=== PATIENT | female | born 1935 | race Caucasian/White ===

== ENCOUNTER 2016-11-12 11:45 | Day surgery (SDC) | payer MEDICARE ==
[~2016-11-12] VITALS: Ht 177.8 cm; Wt 85.1 kg
[2016-11-12] VITALS (7 sets, daily range): BP systolic 122–162; BP diastolic 66–94; PULSE 70–88; RESP 6–17; O2SAT 93–99
[~2016-11-12 11:45] MED LIST: ALEN70TA2 PO; CHOL200025 PO; HYDR25TA4 PO; INSLIS SUBQ; INSU100V7 SUBQ; LEVO125T50 PO; LORazepam 1 mg Tablet PO PRN; Lactated Ringer's 1,000 ML IV SCH; METO25TA6 PO; POTA10TA12 PO; SIMV20TA4 PO; TRAM50TA2 PO; VALS320T12 PO; WARF5TAB9 PO
[2016-11-12] MEDS ORDERED: fentaNYL-PF 50 mCg/mL 2 mL Inj ONE (11:46)
[2016-11-12] MEDS ORDERED: Propofol 10,000 mCg/mL 20 mL Inj ONE (11:46)
[2016-11-12] MEDS ORDERED: Rocuronium 10 mg/mL 5 mL Inj ONE (11:46)
[2016-11-12] MEDS ORDERED: Ondansetron 2 mg/mL 2 mL Inj ONE (11:46)
[2016-11-12] MEDS ORDERED: Dexamethasone 4 mg/mL Inj ONE (11:46)
[2016-11-12] MEDS ORDERED: Lactated Ringer's 1,000 ML IV ONE (12:59)
--- NOTE | 2016-11-12 15:18 | PCM.HPANE ---
Patient Data Date of Service: November 12, 2016 ([id number]) Surgeon Admitting Provider: Attending Provider:Bill Dyson MD Primary Care Physician:Yasmin Brunson DO Other Provider:Pennie Mead Anesthesia Reason for Visit Primary Hyperparathyroidism Ht/WT & BMI Height (Feet): 5 Height (Inches): 10.00 Weight (Kilograms): 85.100 Body Mass Index 26.00 Allergies Coded Allergies: Sulfa (Sulfonamide Antibiotics) (Verified Allergy, Unknown, 11/05/16) aspirin (Verified Allergy, Unknown, 11/05/16) tamoxifen (Verified Allergy, Unknown, 11/05/16) Uncoded Allergies: ADHESIVE TAPES (Allergy, Unknown, 11/05/16) NSAIDS (Allergy, Unknown, 11/05/16) Past Anesthesia History Anesthesia History: Denies:: Anesthesia Reactions, Malignant Hyperthermia Diabetes History Hx Diabetes?: Yes Type of Diabetes: Type I Glycemic Control: Insulin & Oral Medication Current Bedside Blood Glucose: 166 Medications Blood Thinner: Aspirin, Coumadin Hypertension Medication: Yes Home Meds Incl Beta Donna: Yes Date Beta Donna Taken: November 12, 2016 Time Beta Donna Taken: 0400 Reported Medications Cholecalciferol (Vitamin D3) (Vitamin D3)2,000 Unit Tablet2,000 Unit PO DAILY 11/05/16 Valsartan 320 Mg [id number] Mg PO DAILY 11/05/16 Tramadol 50 Mg Eijxme89 Mg PO Q4H PRN For Pain Ref 0 11/05/16 Simvastatin 20 Mg Flfywk43 Mg PO HS Ref 0 11/05/16 Potassium Chloride ER 10 Meq Ogtkos51 Meq PO DAILY Ref 0 TAKE WITH FOOD 11/05/16 Metoprolol Tartrate 25 Mg Hmewkc11 Mg PO BID 30 Days Ref 0 11/05/16 Levothyroxine (Levoxyl)125 Mcg Wowaoi930 Mcg PO DAILY Ref 0 11/05/16 Insulin Glargine (Lantus U100 Insulin Vial)100 Unit/Ml Vial16 Unit SUBQ QPM #1 VIAL Ref 0 11/05/16 Insulin Glargine (Lantus U100 Insulin Vial)100 Unit/Ml Vial18 Unit SUBQ QAM #1 VIAL Ref 0 11/05/16 Warfarin Sodium (Jantoven)5 Mg Tablet5 Mg PO DAILY 11/05/16 Hydrochlorothiazide 25 Mg Ohvsqg47 Mg PO DAILY 30 Days Ref 0 5/16/17 Insulin Human Lispro (HumaLOG U100 Insulin Vial)100 Unit/Ml Unit4-8 Unit SUBQ DIRECTED #1 VIAL Ref 0 Check blood sugars before meals and at bedtime. Use correction factor only before meals. Blood Sugar Lispro Correction: <151, 0 units; 151-175, 1 unit; 176-200, 2 units; 201-225, 3 units; 226-250, 4 units; 251-275, 5 units; 276-300, 6 units; 301-325, 7 units; 326-350, 8 units; 351-375, 9 units; 376-400, 10 units; >400, 12 units. 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 (greer breast cancer- lumpectomies/radiation) Denies:: Currently Skin History: Denies:: History Skin Disorders? Pressure Ulcers Hx Musculoskeletal Problems?: Yes Musculoskeletal History: Positive for:: Back Injury (prior hx L3-5 lumbar lami ) Musculoskeletal Trauma (prior hx knee arthroscopy) Osteoarthritis Denies:: Fibromyalgia Joint Replacement Myasthenia Gravis Hx of Psycho/Social Problems?: No Hx Surgeries?: Yes (greer breast lumpectomy, tonsil, knee scope, cataracts- l3-5 lami) Hx Any Other Health Problems?: Yes Other History: Positive for:: Cancer (bilateral breast) Endocrine Disease (hyperparathyroid current admission problem) Thyroid Disease (parathyroid- with hx of prior radioactive iodine ablation) Hx Diabetes: YesBedside Blood Glucose: 166 Have You Smoked inLast 12 mo: No Stop/Bang S-Snoring: Do You Snore Loudly: No T-Tired: feel tired, fatigued: No O-Obsered: Observed not breath: No P-Blood Pressure: treated: Yes B- Body Mass Index > 35 kg/m2: No A- Age over 50: Yes N- Neck Large Circumference: No G- Gender Male: No JT Total Score: 2 JT Risk Assessment: Low Risk, <3 Yes Risk Assessment Category Category 1A: Patient has history of documented sleep apnea, and HAS NOT received any narcotic, sedative or anesthesia administration during this stay. Category 1B: Patient has history of documented sleep apnea, and HAS received any narcotic , sedative or anesthesia administration during this stay Category 2: Patient has SUSPECTED Obstructive Sleep Apnea, and HAS received any narcotic , sedative or anesthesia administration during this stay. Category 3: Patient has SUSPECTED Obstructive Sleep Apnea and HAS NOT received narcotic, sedative or anesthesia administration during this stay. Category 4: Outpatient in Procedural Areas with known sleep apnea or who screen positive for High Risk via the STOP/BANG questionnaire. Exam Exam Vital Signs Vital Signs Date Time Temp Pulse Resp B/P Pulse Ox O2 Delivery O2 Flow Rate FiO2 11/12/16 12:00 36.4 70 17 149/92 96 Room Air General Appearance: Alert, Oriented X3, Cooperative HEENT/AIRWAY: MP 1 Lungs: Clear to Auscultation Heart: Exam Unremarkable Meds/Labs/Diagnostics Admission Meds Current Medications Lactated Ringer's (Lr) 1,000 ml @ ud STK-MED ONCE IV Last administered on 11/12t 12:59; Start 11/12/16 at 12:59; Stop 11/12/16 at 13:00; Status DC Bedside Blood Glucose: 166 Plan Impression Patient chart reviewed, patient interviewed and anesthestic plan with risks, benefits, and alternatives discussed, and informed consent obtained. NPO per Anesth. Guidelines: Yes ASA Physical Status: ASA2 Mod Systemic Disease Anesthetic Plan: GA Bene/Risks/Altern/Consents: Yes HP Complete Prior to Induction: Yes Luis Miguel Roberts MD November 12, 2016 15:18
[2016-11-12] MEDS ORDERED: Lactated Ringer's 1,000 ML IV SCH (15:19)
[2016-11-12] MEDS ORDERED: Lactated Ringer's 500 ML IV PRN (15:19)
[2016-11-12] MEDS ORDERED: MetoCLOpramide 5 mg/mL 2 mL Inj IVPUSH PRN ×2 (15:20→16:30)
[2016-11-12] MEDS ORDERED: Ondansetron 2 mg/mL 2 mL Inj IVPUSH PRN ×2 (15:20→16:30)
[2016-11-12] MEDS ORDERED: Dexamethasone 4 mg/mL Inj IVPUSH PRN (15:20)
[2016-11-12] MEDS ORDERED: fentaNYL-PF 50 mCg/mL 2 mL Inj IVPUSH PRN (15:20)
[2016-11-12] MEDS ORDERED: HYDROmorphone 1 mg/mL Inj IVPUSH PRN (15:20)
[2016-11-12] MEDS ORDERED: Phenylephrine 10,000 mCg/mL Inj IVPUSH PRN (15:20)
[2016-11-12] MEDS ORDERED: EPHEDrine Sulfate 50 mg/mL Inj IVPUSH PRN (15:20)
[2016-11-12] MEDS ORDERED: Bupivacaine-MPF 0.25%/EPI 30 mL Inj INFILTRATE ONE (16:02)
--- NOTE | 2016-11-12 16:29 | PCM.DISURG ---
Surgical Discharge Instruction Date of Service November 12, 2016 Dates of Hospitalization Date of Hospital Admission Providers Admitting Physician: Primary Care Physician: Yasmin Brunson DO Attending Physician: Bill Dyson MD Discharge Diagnosis Discharge Diagnosis Hyperparathyroidism Diet Discharge Diet: No restrictions Activity Discharge Activity-General: No restrictions Dressing and Incisional Care Dressing Instructions: Dermabond will peel off gradually Hygiene: May shower Additional Instructions Discharge Instructions It is okay to resume warfarin today. Follow Up Plan Follow Up Plan In the general surgery [place] postoperative clinic in 2-3 weeks for a wound check. Call your provider for: Fever (over 101.5), Discharge @ incision, pus discharge Bill Dyson MD November 12, 2016 16:28
[2016-11-12] MEDS ORDERED: HYDROcodone-APAP 5-325 mg Tablet PO PRN (16:30)
--- NOTE | 2016-11-12 16:34 | PCM.ANEP1 ---
Post Anesthesia PACU Phase 1 Assessment Date of Service: November 12, 2016 ([id number]) Vital Signs 88, 22, 97%, 161/94, 36.7 Vital Signs Date Time Temp Pulse Resp B/P Pulse Ox O2 Delivery O2 Flow Rate FiO2 11/12/16 12:00 36.4 70 17 149/92 96 Room Air Level of Alertness: Awake, talking LORENZO's with Equal Strength: Yes Pain: No Nausea or Vomiting: No CV Function & Hydration Stable: Yes Airway Device: none Oxygen Delivery: Simple Mask Lungs: Clear to Auscultation Dermatome Level: Full Sensation Summary uneventful GETA PACU Phase 2 Assessment Complications: No Follow up Care: No Patient Instructions Provided: N/A Luis Miguel Roberts MD November 12, 2016 16:34
--- NOTE | 2016-11-12 16:35 | PCM.SURGOP ---
Surgical Operative Report Date of Service: November 12, 2016 Pre Operative Diagnosis Primary hyperparathyroidism Post Operative Diagnosis Same, right inferior parathyroid adenoma Procedure: Minimally invasive right inferior parathyroidectomy Surgeon and Veneer Puller: Surgeon: Bill Dyson MD Assistants: Almita Baeza M.D. Indication for Procedure 81-year-old woman who has had primary hyperparathyroidism, with a PTH of 169, and a calcium of 10.2. She also has had previous radioactive iodine ablation for Graves' disease, so has no detectable thyroid tissue on ultrasound of the neck. Her nuclear medicine scan and ultrasound of the neck both were suggestive of a parathyroid adenoma in the right inferior position. After discussion of risks and benefits, she agreed to proceed with minimally invasive parathyroidectomy. Findings: There was no adenoma in the right inferior position, measuring 1.2 x 0.7 x 0.3 cm. There was no visible thyroid tissue. Procedure Details After smooth induction of general endotracheal anesthesia, she was placed in the modified beachchair position with the neck extended, and was prepped and draped in wide sterile fashion. A procedural pause was performed according to the SCOAP checklist, and all were found to be in agreement. A 2 cm transverse incision was made in the midline on the inferior neck. Dissection was carried down with electrocautery until the platysma muscle was divided. Subplatysmal skin flaps were raised superiorly and inferiorly. The median raphae was incised, and the right sternohyoid and sternothyroid muscles were sequentially elevated. There was no visible thyroid tissue. In the right inferior neck, there was an obvious parathyroid adenoma. This was dissected free from its blood supply, which came off the inferior aspect using the LigaSure device. Ex vivo, it measured 1.2 x 0.7 x 0.3 cm. It was sent for permanent pathology. Hemostasis was adequate. The midline strap muscles were reapproximated with interrupted 3-0 Vicryl suture. The platysma muscle was closed with interrupted 3-0 Vicryl suture. The skin incision was closed with a running 4-0 Monocryl subcuticular stitch. Dermabond was applied to the skin as a dressing. At the end of the case all needle and sponge counts were correct 2. The patient was awakened from anesthesia without difficulty, and taken to the recovery room in satisfactory condition, having tolerated the procedure well. Complications There were no periprocedural complications identified. Surgical Specimen Removed: Yes Specimen sent to Pathology: Yes Surgical Specimen description: Right inferior parathyroid gland Anesthetic Plan: GA Grafts, Implants: None Output, Estimated Blood Loss: 5 Blood Administration during heredia: No Drains: None Catheters: None copies to: Kendall Caruso MD; Yasmin Brunson Joshua D MD November 12, 2016 16:35
--- NOTE | 2016-11-14 10:59 | PATH ---
SURGICAL PATHOLOGY Attending Physician:[place] Moya CASE STATUS: Signed Out PATIENT NAME: DULCE BERRY PID: [id number] : 1935 DATE COLLECTED:11/12/2016 00:00 SPECIMEN: Parathyroid Gland CLINICAL HISTORY: HYPERPARATHYROIDISM 1). RIGHT INFERIOR PARATHYROID GLAND 1.2 X 0.7 X 0.3CM FINAL DIAGNOSIS: 1.RIGHT INFERIOR PARATHYROID GLAND (0.3 GRAMS): PARATHYROID ADENOMA. ICD10 D35.1 GROSS DESCRIPTION: The specimen is received in formalin, labeled with the patient's name, sublabeled as right inferior parathyroid gland, and consists of a johnson-yellow rubbery parathyroid gland (0.3 g, 1.4 x 0.7 x 0.2 cm). The cut surface is johnson and homogenous. No nodules, masses or lesions are identified. Section code: (A) parathyroid gland, bisected. Specimen entirely submitted. 11/13/16 JM MICRO DESCRIPTION: See diagnosis. ICD-9 CODES: CPT CODES: 1: 01527 Electronically Signed Out Brandon Antonio MD [facility] Pathology [facility] [address], [place] [address] Technical component performed at [facility], [address] [place] [address] Ave[address], [place], [address]
== END 2016-11-12 23:59 | disposition home or self-care (01) ==
LOC: SAS 11:45
PROVIDERS: ATTEND Student in an Organized Health Care Education/Training Program
DX: E21.0 Primary hyperparathyroidism (principal); D35.1 Benign neoplasm of parathyroid gland; E21.3 Hyperparathyroidism, unspecified; I10 Essential (primary) hypertension; I48.2 Chronic atrial fibrillation; E10.9 Type 1 diabetes mellitus without complications; M81.0 Age-related osteoporosis without current pathological fracture; M19.90 Unspecified osteoarthritis, unspecified site; K27.9 Peptic ulcer, site unspecified, unspecified as acute or chronic, without hemorrhage or perforation; Z79.01 Long term (current) use of anticoagulants; Z86.718 Personal history of other venous thrombosis and embolism; Z86.711 Personal history of pulmonary embolism; Z85.3 Personal history of malignant neoplasm of breast; Z87.891 Personal history of nicotine dependence; Z79.4 Long term (current) use of insulin; Z79.84 Long term (current) use of oral hypoglycemic drugs; Z79.82 Long term (current) use of aspirin
CPT/HCPCS: 36415; 60500; 83970; J1100; J2405; J3010; J7120